=== PATIENT | male | born 1970 | race Caucasian/White ===

== ENCOUNTER 2019-12-01 14:43 | Outpatient (CLI) | payer BC ==
--- NOTE | 2019-12-01 15:11 | ULT ---
Bilateral renal ultrasound CLINICAL INDICATION: Acute renal failure. COMPARISON: None FINDINGS: Right kidney: There is no evidence of a renal mass, renal calculus, or hydronephrosis seen. The right kidney measures 10.9 cm x 6.2 cm. Left kidney: There is no evidence of a renal mass, renal calculus, or hydronephrosis. The left kidney measures 12.3 cm x 8.7 cm. Urinary bladder: Mostly decompressed with urinary bladder volume of 47.1 mL. Urinary bladder has a no rmal appearance for the degree of distention. Visualized right hepatic lobe demonstrates increased echogenicity suggesting fatty infiltration. IMPRESSION: 1. Normal-appearing bilateral kidneys without evidence of hydronephrosis. There is no renal cortical thinning present. 2. Fatty infiltration of the visualized right hepatic lobe.
== END 2019-12-01 14:44 | disposition home or self-care (01) ==
LOC: BICULT 14:43
PROVIDERS: ATTEND Internal Medicine Nephrology
DX: N17.9 Acute kidney failure, unspecified (principal); K76.0 Fatty (change of) liver, not elsewhere classified
CPT/HCPCS: 76770